=== PATIENT | male | born 1950 | race Caucasian/White ===

== ENCOUNTER → 2018-05-14 13:40 | Outpatient (CLI) | payer MEDICARE, OTHER, SELFPAY ==
--- NOTE | 2018-05-14 | DI.US.S_ITS ---
PROCEDURE: US ABDOMEN COMPLETE INDICATIONS: STEATOSIS OF LIVER, GALLSTONE TECHNIQUE: Real-time scanning was performed of the abdominal and retroperitoneal organs, with image documentation. COMPARISON: None. FINDINGS: Liver: Liver is diffusely increased in echogenicity. No focal hepatic abnormalities identified. Normal hepatic size. Gallbladder: Multiple gallstones present. No gallbladder wall thickening or pericholecystic fluid. Negative sonographic Alonso sign. Biliary ducts: Intrahepatic bile ducts are non-dilated. Extrahepatic bile duct caliber measures 5.9 mm. Normal is 6-7 mm or less in diameter, or 10 mm or less post-cholecystectomy. Pancreas: Not visualized. Spleen: Spleen is normal in size and homogeneous in echotexture. Kidneys: Kidneys are normal in size and echotexture. Right kidney measures 10.9 cm long; left kidney measures 11.4 cm long. No hydronephrosis or nephrolithiasis. No solid masses. Aorta: Visualized aorta is normal in caliber at less than 3 cm. Iliacs: Not visualized. IVC: Intrahepatic inferior vena cava is patent. Miscellaneous: No free abdominal fluid. IMPRESSION: 1. Increased hepatic echogenicity noted possibly related to hepatic steatosis but other sources of hepatocellular disease cannot be excluded. Recommend clinical correlation. 2. Cholelithiasis and no acute cholecystitis. Dictated by: Joel Finn RRA Interpreted: Kaila Kevin MD on 05/14/2018 at 14:59 Approved by: Kaila Kevin MD, PhD on 05/14/2018 at 15:13
== END ==
PROVIDERS: PCP Family Medicine; Visit Provider Internal Medicine Gastroenterology
DX: K76.0 Fatty (change of) liver, not elsewhere classified (principal); K80.80 Other cholelithiasis without obstruction
CPT/HCPCS: 76700

== ENCOUNTER → 2018-05-16 09:09 | Outpatient (CLI) | payer MEDICARE, OTHER, SELFPAY ==
[2018-05-16 10:04] LABS: Add Manual Diff / Slide Review SLIDE REVIEW; Basophils Percent Auto 1.1 % (0-2); Eosinophils Percent Auto 2.7 % (2-4); Hematocrit 44.6 % (41-53); Hemoglobin 15.6 g/dL (13.5-17.5); Lymphocytes Percent Auto 26.9 % (25-40); Mean Corpuscular HGB Conc 34.9 % (30-36); Mean Corpuscular Hemoglobin 31.3 PG (26-34); Mean Corpuscular Volume 89.6 fL (80-100); Monocytes Percent Auto 6.3 % (3-14); Neutrophils Absolute Auto 4000 /uL (3000-5900); Platelet Count 652 X10^3/uL (150-400); Red Blood Cell Count 4.98 X10^6/uL (4.5-5.9); Red Cell Distribution Width 14.1 % (11.6-14.8); White Blood Cell Count 6.3 X10^3/uL (4.5-11.0)
[2018-05-16 10:34] LABS: RBC Morphology See
[2018-05-16 10:35] LABS: Platelet Estimate Incr
[2018-05-16 10:55] LABS: Alanine Aminotransferase 38 IU/L (21-72); Albumin 4.5 g/dL (3.5-5.0); Alkaline Phosphatase 28 U/L (38-126); Aspartate Aminotransferase 40 IU/L (17-59); Bilirubin Unconjugated 0.8 mg/dL (0.0-1.1); Globulin 2.3 g/dL (1.7-4.1); HEMOLYSIS < 15 (0-50); Total Protein 6.8 g/dL (6.3-8.2)
[2018-05-16 11:36] LABS: Hep C Virus Ab w/Reflex Quant NEGATIVE s/c (NEGATIVE)
== END ==
PROVIDERS: PCP Family Medicine; Visit Provider Family Medicine
DX: K76.0 Fatty (change of) liver, not elsewhere classified (principal); K80.20 Calculus of gallbladder without cholecystitis without obstruction
CPT/HCPCS: 36415; 80076; 82728; 85025; 86803

== ENCOUNTER → 2018-05-20 16:40 | Outpatient (CLI) | payer MEDICARE, OTHER, SELFPAY ==
[2018-05-21 14:09] LABS: Hemoglobin 15.1 g/dL (13.5-17.5); Red Blood Cell Count 4.89 X10^6/uL (4.5-5.9); White Blood Cell Count 8.6 X10^3/uL (4.5-11.0)
[2018-05-21 14:10] LABS: Hematocrit 44.1 % (41-53); Mean Corpuscular HGB Conc 34.2 % (30-36); Mean Corpuscular Hemoglobin 30.9 PG (26-34); Mean Corpuscular Volume 90.2 fL (80-100); Platelet Count 693 X10^3/uL (150-400); Red Cell Distribution Width 14.5 % (11.6-14.8)
[2018-05-21 14:15] LABS: Add Manual Diff / Slide Review NO; Eosinophils Percent Auto 2.5 % (2-4); Lymphocytes Percent Auto 21.7 % (25-40); Monocytes Percent Auto 5.6 % (3-14); Neutrophils Percent Auto 69.2 % (50-75)
[2018-05-21 14:16] LABS: Neutrophils Absolute Auto 5951 /uL (3000-5900)
== END ==
PROVIDERS: PCP Family Medicine; Visit Provider Family Medicine
DX: Z00.00 Encounter for general adult medical examination without abnormal findings (principal)
CPT/HCPCS: 36415; 85025